=== PATIENT | female | born 1955 | race Caucasian/White ===

== ENCOUNTER → 2016-07-26 | Outpatient (CLI) | payer MEDICARE ==
--- NOTE | 2016-07-26 14:30 | WOMENS IMAGING REPORT ---
EXAM DESCRIPTION: BILAT SCREENING MAMMO W/CAD COMPLETED DATE/TIME: 07/26/2016 1:30 pm REASON FOR STUDY: Z12.31 ROUTINE SCREENING MAMMO Z12.31 ENCNTR SCREEN MAMMOGRAM FOR MALIGNANT NEOPL ASM OF [place] COMPARISON: Multiple since 2009 TECHNIQUE: Standard craniocaudal and mediolateral oblique views of each breast recorded using [employer] l acquisition. LIMITATIONS: None. FINDINGS: Findings present which are benign by mammographic criteria. No suspicious masses, calcifi cations or architectural distortion. Read with the assistance of CAD. .[facility] - R2 Cenova Version 1.3 .[facility] - R2 Cenova Version 1.3 .[facility] - R2 Cenova Version 2.4 .[facility] - R2 Cenova Version 2.4 .[facility] - R2 [employer] Version 9.2 Benign mammographic findings may include one or more of the following: Smooth masses, popcorn/rim/co arse calcifications, asymmetries, post-procedure changes, and lesions with long-standing stability. BREAST DENSITY: b. There are scattered areas of fibroglandular density. BIRAD: 2 BENIGN FINDING(S) RECOMMENDATION: ROUTINE SCREENING COMMENT: PATIENT NOTIFIED BY LETTER. The [employer] recommends an annual screening mammogram for women aged 40 years or over. Each patient will receive a reminder prior to the anniversary date of her mammogram. The [employer] (ACR) has developed recommendations for screening MRI of the breast s in certain patient populations, to be used in conjunction with mammography. Breast MRI surveillanc e may be appropriate for women with more than 20% lifetime risk of developing breast cancer as deter mined by genetic testing, significant family history of the disease, or history of mantle radiation f or Hodgkins Disease. ACR Practice Guidelines 2008. TECHNICAL DOCUMENTATION: FINDING NUMBER: (1) ASSESSMENT: (1) JOB ID: [id number] [employer]- All Rights Reserved
== END ==
LOC: WI 13:02
PROVIDERS: ATTEND Neurological Surgery
DX: Z12.31 Encounter for screening mammogram for malignant neoplasm of breast (principal)
CPT/HCPCS: 77067; G0202

== ENCOUNTER 2017-02-16 07:33 | Day surgery (SDC) | payer MEDICARE ==
[2017-02-11 09:56] LABS: HEMATOCRIT 38.1 % (36.0-47.0); HEMOGLOBIN 12.6 g/dL (12.0-15.5); HGB HCT DIFFERENCE -0.3; MEAN CORPUSCULAR HEMOGLOBIN 27.5 pg (27.0-33.4); MEAN CORPUSCULAR HGB CONC 33.1 g/dL (32.0-36.0); MEAN CORPUSCULAR VOLUME 83 fl (80-97); RED BLOOD COUNT 4.59 10^6/uL (3.72-5.28); RED CELL DISTRIBUTION WIDTH 14.4 % (11.5-14.0); WHITE BLOOD COUNT 6.2 10^3/uL (4.0-10.5)
[~2017-02-16 07:33] MED LIST: ACETAMINOPHEN 325 MG TABLET PO PRN; CEFAZOLIN 1 GM/D5W RTU 1 GM/50 ML RTUPB IV PRN; LACTATED RINGERS 1000 ML IV PRN; LIDOCAINE 0.5% INJ-PF (5 MG/ML) 50 ML SDV SUBCUT PRN
[2017-02-16] MEDS ORDERED: LIDOCAINE 0.5%/EPINEPHRINE INJ 50 ML VIAL ONE (09:28)
[2017-02-16] MEDS ORDERED: MIDAZOLAM 2 MG/2 ML INJ ONE (10:48)
[2017-02-16] MEDS ORDERED: FENTANYL CITRATE INJ/PF 100 MCG/2 ML AMPUL ONE (10:50)
[2017-02-16] MEDS ORDERED: PROPOFOL INJ 200 MG/20 ML VIAL IV ONE (10:50)
[2017-02-16] MEDS ORDERED: MORPHINE SULFATE 10 MG/ML INJ IV PRN (11:12)
[2017-02-16] MEDS ORDERED: DIPHENHYDRAMINE HCL 50 MG/ML VIAL IV PRN (11:12)
[2017-02-16] MEDS ORDERED: MEPERIDINE HCL/PF INJ 25 MG/1 ML DISP.SYRIN IV PRN (11:12)
[2017-02-16] MEDS ORDERED: OXYCODONE-ACETAMINOPHEN 5-325 MG TABLET PO PRN ×2 (11:12)
[2017-02-16] MEDS ORDERED: PROMETHAZINE HCL INJ 25 MG/1 ML VIAL IV PRN ×2 (11:12)
[2017-02-16] MEDS ORDERED: FENTANYL CITRATE INJ/PF 100 MCG/2 ML AMPUL IV PRN ×3 (11:12)
--- NOTE | 2017-02-16 11:51 | Operative Report ---
Operative Report DATE OF SURGERY: 02/16/17 PREOPERATIVE DIAGNOSIS: Lung carcinoma with metastatic disease POSTOPERATIVE DIAGNOSIS: Same OPERATION: 1. Focused ultrasound of the left neck. 2. ultrasound directed insertion of single-lumen port subclavian position. 3. Interpretation of intraoperative fluoroscopy SURGEON: RAMAKRISHNA HERNANDEZ LENS EDGER: ALIDA PARKER ANESTHESIA: LMAC TISSUE REMOVED OR ALTERED: None COMPLICATIONS: None ESTIMATED BLOOD LOSS: Scant INTRAOPERATIVE FINDINGS: See below PROCEDURE: The operating where LMAC anesthesia was induced. Arms were tucked head tilted to the right cervical spine extended. The neck and shaft on the left side were prepped draped sterile fashion. Surgical plan and surgical timeout were conducted Ultrasonography was used to skin the left neck. There was an early bifurcation of the internal jugular vein on the left side. Skin was any stopped 1% lidocaine with epinephrine, orlin made the skin with 11 blade, and the conventional needle and wire was threaded into the left internal jugular vein. A suitable site for placement of the port was chosen in the left subclavian position. Skin was any stopped 1% lidocaine plain. 3 cm incision was made over the sub-clavicular area and pocket developed with electrocautery and blunt dissection. The catheter was then trimmed to appropriate length tunneled between the 2 incisions, attached to the port with the plastic ring. Under fluoroscopic guidance, the. Sheath was threaded over the wire into the left internal jugular vein. The wire and dilator were removed, catheter threaded into the left internal jugular vein, strip away sheath removed leaving the catheter in good position. There is no kinking of the catheter. The tip of the catheter ended at the juncture of the innominate vein and superior vena cava. There was excellent aspiration and flushed through the catheter lumen. Wound closed with 3-0 Vicryl benzoin Steri-Strips. Postop tolerated the procedure well, taken recovery in stable condition. Portable upright chest x-ray pending time dictation. The physician administrative assistant office manager, Ms. Covarrubias, provided assistance during this case by: Assisting with retracting tissue, instillation of local anesthesia and closure of skin incisions.
--- NOTE | 2017-02-16 11:59 | PDOC DISCHARGE SUMMARY ---
Discharge Summary (SDC) - Discharge Final Diagnosis: Metastatic lung carcinoma Date of Surgery: 02/16/17 Discharge Date: 02/16/17 Condition: Good Treatment or Instructions: Patient may shower in 48 hours; follow-up with [facility] in 2 weeks. Allow Steri-Strips to fall off. Port may be used at any time. No Vigorous physical activity for 3 weeks. Prescriptions: Ketorolac Tromethamine [Toradol 10 mg Tablet] 10 mg PO Q6HP PRN #14 tablet PRN Reason: Discharge Diet: As Tolerated Discharge Activity: Activity As Tolerated, No Lifting Over 10 Pounds, No Lifting /Push/Pulling Home Care Assistance: None Needed Report the Following to Your Physician Immediately: Shortness of Breath, Increase in Pain, Fever over 101 Degrees
--- NOTE | 2017-02-16 12:45 | RADIOLOGY REPORT (SQ) ---
EXAM DESCRIPTION: CHEST SINGLE VIEW COMPLETED DATE/TIME: 02/16/2017 12:31 pm REASON FOR STUDY: s/p left IJ COMPARISON: None. EXAM PARAMETERS: NUMBER OF VIEWS: One view. TECHNIQUE: Single frontal radiographic view of the chest acquired. RADIATION DOSE: NA LIMITATIONS: None. FINDINGS: LUNGS AND PLEURA: No opacities, masses or pneumothorax. No pleural effusion. MEDIASTINUM AND HILAR STRUCTURES: No masses. Contour normal. HEART AND VASCULAR STRUCTURES: Heart normal in size. Normal vasculature. BONES: No acute findings. HARDWARE: An injection port is present on the left. The tip of the catheter is in the brachiocephali c vein. OTHER: No other significant finding. IMPRESSION: Catheter placement. TECHNICAL DOCUMENTATION: JOB ID: [id number]
[2017-02-16 13:42] VITALS: BP 106/64
[2017-02-16] MEDS ORDERED: LIDOCAINE 2% INJ-PF (20 MG/ML) 10 ML AMPUL ONE (14:22)
== END 2017-02-16 13:38 | disposition home or self-care (01) ==
LOC: OROUT 07:33
PROVIDERS: ATTEND Surgery
PROC: 05HN33Z Insertion of Infusion Device into Left Internal Jugular Vein, Percutaneous Approach (ICD-10-PCS; principal; 2017-02-16 09:45)
DX: C34.91 Malignant neoplasm of unspecified part of right bronchus or lung (principal); C79.9 Secondary malignant neoplasm of unspecified site; E11.9 Type 2 diabetes mellitus without complications; G25.81 Restless legs syndrome; M54.9 Dorsalgia, unspecified; E03.9 Hypothyroidism, unspecified; E78.00 Pure hypercholesterolemia, unspecified; Z86.39 Personal history of other endocrine, nutritional and metabolic disease; Z87.891 Personal history of nicotine dependence; Z79.899 Other long term (current) drug therapy; Z79.4 Long term (current) use of insulin; Z79.82 Long term (current) use of aspirin; Z88.6 Allergy status to analgesic agent; Z85.118 Personal history of other malignant neoplasm of bronchus and lung
CPT/HCPCS: 36415; 82962; 85027; 71010; 77001; 36561; C1752; C1788; J2250; J0690; J3010; J3490 ×2; J2704; J1642; 532

== ENCOUNTER 2017-06-11 13:41 | Emergency (ER) | payer MEDICARE ==
[2017-06-11] MEDS ORDERED: ONDANSETRON HCL INJ/PF 4 MG/2 ML SDV IV ONE (14:19)
[2017-06-11] MEDS ORDERED: NORMAL SALINE 1000 ML 1,000 ML IV ONE (14:19)
[2017-06-11] MEDS ORDERED: FAMOTIDINE INJ/PF 20 MG/2 ML SDV IV ONE (14:19)
--- NOTE | 2017-06-11 14:21 | ER Document Report ---
ED General - General Chief Complaint: Nausea/Vomiting Stated Complaint: THROAT PAIN,NAUSEA Time Seen by Provider: 06/11/17 14:06 Notes: 62-year-old female patient. History of lung cancer with recent treatment with chemotherapy and radiation. Has been having some burning in her stomach with a lot of reflux. Cannot stop vomiting. Denies any abdominal pain just mostly vomiting and reflux. Has a burning in sensation in her throat. Denies fevers, chills, sweats. Denies back pain. Denies any dysuria. Denies any lower extremity swelling. No shortness of breath. Patient states that she normally has an elevated heart rate. Has not been able to keep anything down all day. Got nervous because of her recent radiation and chemotherapy so decided to come in. Was too weak to come in by car so came in by ambulance. TRAVEL OUTSIDE OF THE [place] IN LAST 30 DAYS: No - HPI Onset: This morning Onset/Duration: Gradual, Worse Quality of pain: Burning Severity: Moderate Pain Level: 3 Associated symptoms: Nausea, Vomiting Exacerbated by: Denies Relieved by: Denies - Related Data Allergies/Adverse Reactions: naproxen [From Naprosyn] Allergy (Severe, Verified 02/16/17 08:11) Rash, Vaginal burning Past Medical History - General Information source: Patient - Social History Smoking Status: Never Smoker Frequency of alcohol use: Occasional Drug Abuse: None Lives with: Alone Family History: CAD, CVA, Hypertension, Malignancy - Past Medical History Cardiac Medical History: Denies: Hx Atrial Fibrillation, Hx Congestive Heart Failure, Hx Coronary Artery Disease, Hx DVT, Hx Heart Attack, Hx Hypercholesterolemia, Hx Hypertension, Hx Peripheral Vascular Disease, Hx Pulmonary Embolism, Hx Heart Murmur Pulmonary Medical History: Denies: Hx Asthma, Hx Bronchitis, Hx COPD, Hx Pneumonia, Hx Tuberculosis Neurological Medical History: Denies: Hx Cerebrovascular Accident, Hx Seizures Endocrine Medical History: Reports: Hx Diabetes Mellitus Type 1, Hx Diabetes Mellitus Type 2, Hx Hypothyroidism Renal/ Medical History: Denies: Hx Ectopic , Hx End Stage Renal Disease, Hx Hemodialysis, Hx Hydrocele, Hx Kidney Stones, Hx Ovarian Cysts, Hx Peritoneal Dialysis, Hx Pelvic Inflammatory Disease, Hx Renal Insufficiency, Hx Varicocele Malignancy Medical History: Reports: Hx Lung Cancer GI Medical History: Reports: Hx Gastroesophageal Reflux Disease, Hx Hiatal Hernia. Denies: Hx Hepatitis, Hx Ulcer Musculoskeltal Medical History: Denies Hx Arthritis Psychiatric Medical History: Reports: Hx Depression Infectious Medical History: Denies: Hx Hepatitis Past Surgical History: Reports: Hx Abdominal Surgery - Milagro fundoplication, Hx Hysterectomy. Denies: Hx Mastectomy, Hx Open Heart Surgery, Hx Pacemaker - Immunizations Immunizations up to date: Yes Hx Diphtheria, Pertussis, Tetanus Vaccination: - UNSURE Hx Pneumococcal Vaccination: 04/17/15 Review of Systems - Review of Systems Constitutional: No symptoms reported EENT: No symptoms reported Cardiovascular: No symptoms reported Respiratory: No symptoms reported Gastrointestinal: Nausea, Vomiting Genitourinary: No symptoms reported Female Genitourinary: No symptoms reported Musculoskeletal: No symptoms reported Skin: No symptoms reported Hematologic/Lymphatic: No symptoms reported Neurological/Psychological: No symptoms reported Physical Exam - Vital signs Interpretation: Normal - General General appearance: Appears well, Alert - HEENT Head: Normocephalic, Atraumatic Eyes: Normal Pupils: PERRL - Respiratory Respiratory status: No respiratory distress Chest status: Nontender Breath sounds: Normal Chest palpation: Normal - Cardiovascular Rhythm: Tachycardia Heart sounds: Normal auscultation Murmur: No - Abdominal Inspection: Normal Distension: No distension Bowel sounds: Normal Tenderness: Nontender Organomegaly: No organomegaly - Back Back: Normal, Nontender - Extremities General upper extremity: Normal inspection, Nontender, Normal color, Normal ROM , Normal temperature General lower extremity: Normal inspection, Nontender, Normal color, Normal ROM , Normal temperature, Normal weight bearing. No: Emmanuel's sign - Neurological Neuro grossly intact: Yes Cognition: Normal Orientation: AAOx4 Cesar Coma Scale Eye Opening: Spontaneous Cesar Coma Scale Verbal: Oriented Erwin Coma Scale Motor: Obeys Commands Cesar Coma Scale Total: 15 Speech: Normal Motor strength normal: LUE, RUE, LLE, RLE Sensory: Normal - Psychological Associated symptoms: Normal affect, Normal mood - Skin Skin Temperature: Warm Skin Moisture: Dry Skin Color: Normal Course - Re-evaluation Re-evalutation: 06/11/17 14:22 Uncertain etiology of patient's nausea and vomiting. Muscles make sure that this is not an anginal equivalent. Explained this to the patient. Will get lipase, CBC, CMP, troponin, EKG, chest x-ray, some Pepcid as well as Zofran and some IV fluids and reassess. 06/11/17 16:37 Laboratory 06/11/17 06/11/17 06/11/17 14:55 14:55 14:55 WBC 10.4 RBC 4.62 Hgb 13.2 Hct 39.6 MCV 86 MCH 28.5 MCHC 33.2 RDW 16.8 H Plt Count 326 Seg Neutrophils % 85.0 H Lymphocytes % 6.5 L Monocytes % 6.6 Eosinophils % 1.5 Basophils % 0.4 Absolute Neutrophils 8.9 H Absolute Lymphocytes 0.7 Absolute Monocytes 0.7 Absolute Eosinophils 0.2 Absolute Basophils 0.0 Sodium 146.5 H Potassium 4.5 Chloride 104 Carbon Dioxide 30 Anion Gap 13 BUN 21 H Creatinine 0.79 Est GFR ( Amer) > 60 Est GFR (Non-Af Amer) > 60 Glucose 146 H Calcium 10.0 Total Bilirubin 0.7 Direct Bilirubin 0.3 Neonat Total Bilirubin Not Reportable Neonat Direct Bilirubin Not Reportable Neonat Indirect Bili Not Reportable AST 19 ALT 32 Alkaline Phosphatase 69 Troponin I < 0.012 Total Protein 6.7 Albumin 4.2 Lipase 46.7 Urine Color Urine Appearance Urine pH Ur Specific [place] Urine Protein Urine Glucose (UA) Urine Ketones Urine Blood Urine Nitrite Urine Bilirubin Urine Urobilinogen Ur Leukocyte Esterase Urine WBC (Auto) Urine RBC (Auto) U Hyaline Cast (Auto) Urine Bacteria (Auto) Squamous Epi Cells Auto Urine Mucus (Auto) Urine Ascorbic Acid 06/11/17 14:55 WBC RBC Hgb Hct MCV MCH MCHC RDW Plt Count Seg Neutrophils % Lymphocytes % Monocytes % Eosinophils % Basophils % Absolute Neutrophils Absolute Lymphocytes Absolute Monocytes Absolute Eosinophils Absolute Basophils Sodium Potassium Chloride Carbon Dioxide Anion Gap BUN Creatinine Est GFR ( Amer) Est GFR (Non-Af Amer) Glucose Calcium Total Bilirubin Direct Bilirubin Neonat Total Bilirubin Neonat Direct Bilirubin Neonat Indirect Bili AST ALT Alkaline Phosphatase Troponin I Total Protein Albumin Lipase Urine Color YELLOW Urine Appearance SLIGHTLY-CLOUDY Urine pH 5.0 Ur Specific [place] 1.022 Urine Protein NEGATIVE Urine Glucose (UA) >=500 H Urine Ketones TRACE H Urine Blood NEGATIVE Urine Nitrite NEGATIVE Urine Bilirubin NEGATIVE Urine Urobilinogen NEGATIVE Ur Leukocyte Esterase NEGATIVE Urine WBC (Auto) 2 Urine RBC (Auto) 1 U Hyaline Cast (Auto) 2 Urine Bacteria (Auto) TRACE Squamous Epi Cells Auto 1 Urine Mucus (Auto) FEW Urine Ascorbic Acid NEGATIVE Chest X-Ray 06/11/17 14:19 IMPRESSION: Interval removal of a left anterior chest wall Port-A-Cath. No evidence of acute cardiopulmonary abnormality. Patient feeling much better at this time. Tolerating p.o. Wants to go home. Still a little tachycardic but states that she has tachycardia and does not know why. DC in stable condition. Patient advised to return immediately for any worsening symptoms or concerns. Patient was advised about her glucose level being slightly elevated but she says that is normal for her as she is a diabetic. - Laboratory Result Diagrams: 06/11/17 14:55 06/11/17 14:55 Laboratory results interpreted by me: 06/11/17 06/11/17 06/11/17 14:55 14:55 14:55 RDW 16.8 H Seg Neutrophils % 85.0 H Lymphocytes % 6.5 L Absolute Neutrophils 8.9 H Sodium 146.5 H BUN 21 H Glucose 146 H Urine Glucose (UA) >=500 H Urine Ketones TRACE H - EKG Interpretation by Me EKG shows normal: [place], Intervals, QRS Complexes, ST-T Waves Rate: Tachycardia Discharge - Discharge Clinical Impression: Gastritis Qualifiers: Gastritis type: unspecified gastritis Chronicity: acute Gastritis bleeding: without bleeding Qualified Code(s): K29.00 - Acute gastritis without bleeding Condition: Good Disposition: HOME, SELF-CARE Instructions: Gastritis ([facility]) Additional Instructions: If symptoms get worse or you are unable to eat or drink, vomiting blood, dark tarry stools or bright red blood in the stool or any other concerns please return immediately within the next 24 hours. Prescriptions: Esomeprazole Magnesium [Nexium 24Hr] 20 mg PO QAM 30 Days #30 capsule. Ondansetron [Zofran Odt 4 mg Tablet] 1 - 2 tab PO Q4H PRN #15 tab.rapdis PRN Reason: For Nausea/Vomiting Referrals: SUMIT CHEUNG III, MD [Primary Care Provider] - Follow up as needed
[2017-06-11 15:19] LABS: ABSOLUTE EOSINOPHILS # (AUTO) 0.2 10^3/uL (0.0-0.6); ABSOLUTE LYMPHOCYTES (AUTO) 0.7 10^3/uL (0.5-4.7); ABSOLUTE MONOCYTES (AUTO) 0.7 10^3/uL (0.1-1.4); ABSOLUTE NEUT (AUTO) 8.9 10^3/uL (1.7-8.2); BASOPHILS % (AUTO) 0.4 % (0-2); EOSINOPHILS % (AUTO) 1.5 % (0-6); HEMATOCRIT 39.6 % (36.0-47.0); HEMOGLOBIN 13.2 g/dL (12.0-15.5); LYMPHOCYTES % (AUTO) 6.5 % (13-45); MEAN CORPUSCULAR HEMOGLOBIN 28.5 pg (27.0-33.4); MEAN CORPUSCULAR HGB CONC 33.2 g/dL (32.0-36.0); MEAN CORPUSCULAR VOLUME 86 fl (80-97); MONOCYTES % (AUTO) 6.6 % (3-13); RED BLOOD COUNT 4.62 10^6/uL (3.72-5.28); RED CELL DISTRIBUTION WIDTH 16.8 % (11.5-14.0); WHITE BLOOD COUNT 10.4 10^3/uL (4.0-10.5)
[2017-06-11 15:35] LABS: APPEARANCE,URINE SLIGHTLY-CLOUDY; BILIRUBIN,URINE NEGATIVE (NEGATIVE); GLUCOSE, URINE >=500 mg/dL (NEGATIVE); KETONES,URINE TRACE mg/dL (NEGATIVE); LEUKOCYTE ESTERASE,URINE NEGATIVE (NEGATIVE); NITRITE,URINE NEGATIVE (NEGATIVE); PROTEIN,URINE NEGATIVE (NEGATIVE); URINE SPECIFIC GRAVITY 1.022; UROBILINOGEN,URINE NEGATIVE mg/dL (<2.0)
[2017-06-11 15:37] LABS: ALANINE AMINOTRANSFERASE 32 U/L (9-52); ALBUMIN 4.2 g/dL (3.5-5.0); ALKALINE PHOSPHATASE 69 U/L (38-126); ANION GAP 13 (5-19); ASPARTATE AMINO TRANSFERASE 19 U/L (14-36); BILIRUBIN,DIRECT 0.3 mg/dL (0.0-0.4); BILIRUBIN,TOTAL 0.7 mg/dL (0.2-1.3); BLOOD UREA NITROGEN 21 mg/dL (7-20); CARBON DIOXIDE 30 mmol/L (22-30); CHLORIDE 104 mmol/L (98-107); CREATININE RESULT 0.79 mg/dL (0.52-1.25); GLUCOSE 146 mg/dL (75-110); LIPASE 46.7 U/L (23-300); POTASSIUM 4.5 mmol/L (3.6-5.0); SODIUM 146.5 mmol/L (137-145); TOTAL PROTEIN 6.7 g/dL (6.3-8.2)
--- NOTE | 2017-06-11 16:11 | RADIOLOGY REPORT (SQ) ---
EXAM DESCRIPTION: CHEST SINGLE VIEW COMPLETED DATE/TIME: 06/11/2017 3:27 pm REASON FOR STUDY: chest pain COMPARISON: 02/16/2017 EXAM PARAMETERS: NUMBER OF VIEWS: One view. TECHNIQUE: Single frontal radiographic view of the chest acquired. RADIATION DOSE: NA LIMITATIONS: None. FINDINGS: LUNGS AND PLEURA: No opacities, masses or pneumothorax. No pleural effusion. MEDIASTINUM AND HILAR STRUCTURES: No masses. Contour normal. HEART AND VASCULAR STRUCTURES: Heart normal in size. Normal vasculature. BONES: No acute findings; re- demonstration of right posterior lateral rib fractures, healed. HARDWARE: A previously visualized left anterior chest wall Port-A-Cath is no longer present. OTHER: No other significant finding. IMPRESSION: Interval removal of a left anterior chest wall Port-A-Cath. No evidence of acute cardio pulmonary abnormality. TECHNICAL DOCUMENTATION: JOB ID: [id number] [employer]- All Rights Reserved
[2017-06-11 18:02] VITALS: BP 139/69
--- NOTE | 2017-06-13 06:00 | EKG REPORT ---
SEVERITY:- OTHERWISE NORMAL ECG - SINUS TACHYCARDIA : Confirmed by: Gail Ornelas MD 13-Jun-2017 06:00:02
== END 2017-06-11 17:35 | disposition home or self-care (01) ==
LOC: ER 13:41
DX: K29.00 Acute gastritis without bleeding (principal); R10.13 Epigastric pain; R53.1 Weakness; E11.9 Type 2 diabetes mellitus without complications; E03.9 Hypothyroidism, unspecified; C34.90 Malignant neoplasm of unspecified part of unspecified bronchus or lung; Z90.710 Acquired absence of both cervix and uterus
CPT/HCPCS: 93005; 99284; 96361; 96374; 96375; 36415; 83690; 85025; 80053; 81001; 84484; 71010; 93010; J2405; J7030; S0028

== ENCOUNTER 2017-07-29 17:02 | Emergency (ER) | payer MEDICARE ==
--- NOTE | 2017-07-29 17:58 | ER Document Report ---
ED General - General Stated Complaint: LOW BLOOD SUGAR Time Seen by Provider: 07/29/17 17:54 Information source: Patient, Relative - daughter TRAVEL OUTSIDE OF THE [place] 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 She was at the shop when her blood pressure dropped. EMS states it went to 24. She was given oral glucose and glucagon and it came up to 60. The patient's daughter states this happens every once in a while and they are more than aware of how to take care of it. They would like the patient discharged immediately. Associated symptoms: Slow to respond Exacerbated by: Denies Relieved by: Rosalind Notes: She states she was running around today to do things for her business as this is the busy season and she did not take care of herself. She states her blood sugar dropped because she did not eat like she normally does. - Related Data Allergies/Adverse Reactions: naproxen [From Naprosyn] Allergy (Severe, Verified 02/16/17 08:11) Rash, Vaginal burning Past Medical History - General Information source: Patient, Relative - Social History Smoking Status: Former Smoker Cigarette use (# per day): No Chew tobacco use (# tins/day): No Smoking Education Provided: No Lives with: Alone, Other - daughter stays with pt. often-has business at patient 's house Family History: CAD, CVA, Hypertension, Malignancy - Past Medical History Cardiac Medical History: Denies: Hx Atrial Fibrillation, Hx Congestive Heart Failure, Hx Coronary Artery Disease, Hx DVT, Hx Heart Attack, Hx Hypercholesterolemia, Hx Hypertension, Hx Peripheral Vascular Disease, Hx Pulmonary Embolism, Hx Heart Murmur Pulmonary Medical History: Denies: Hx Asthma, Hx Bronchitis, Hx COPD, Hx Pneumonia, Hx Tuberculosis Neurological Medical History: Denies: Hx Cerebrovascular Accident, Hx Seizures Endocrine Medical History: Reports: Hx Diabetes Mellitus Type 1, Hx Diabetes Mellitus Type 2, Hx Hypothyroidism Renal/ Medical History: Denies: Hx Ectopic , Hx End Stage Renal Disease, Hx Hemodialysis, Hx Hydrocele, Hx Kidney Stones, Hx Ovarian Cysts, Hx Peritoneal Dialysis, Hx Pelvic Inflammatory Disease, Hx Renal Insufficiency, Hx Varicocele Malignancy Medical History: Reports: Hx Lung Cancer GI Medical History: Reports: Hx Gastroesophageal Reflux Disease, Hx Hiatal Hernia. Denies: Hx Hepatitis, Hx Ulcer Musculoskeltal Medical History: Denies Hx Arthritis Psychiatric Medical History: Reports: Hx Depression Infectious Medical History: Denies: Hx Hepatitis Past Surgical History: Reports: Hx Abdominal Surgery - Milagro fundoplication, Hx Hysterectomy. Denies: Hx Mastectomy, Hx Open Heart Surgery, Hx Pacemaker - Immunizations Immunizations up to date: Yes Hx Diphtheria, Pertussis, Tetanus Vaccination: - UNSURE Hx Pneumococcal Vaccination: 04/17/15 Review of Systems - Review of Systems Constitutional: No symptoms reported EENT: No symptoms reported Cardiovascular: No symptoms reported Respiratory: No symptoms reported Gastrointestinal: No symptoms reported Genitourinary: No symptoms reported Female Genitourinary: No symptoms reported Musculoskeletal: No symptoms reported Skin: No symptoms reported Hematologic/Lymphatic: No symptoms reported Neurological/Psychological: No symptoms reported Physical Exam - Vital signs Vitals: Pulse Resp BP Pulse Ox 96 20 140/67 H 98 07/29/17 17:59 07/29/17 17:59 07/29/17 17:59 07/29/17 17:59 - Notes Notes: PHYSICAL EXAMINATION: GENERAL: Well-appearing, well-nourished and in no acute distress. HEAD: Atraumatic, normocephalic. EYES: Pupils equal round and reactive to light, extraocular movements intact, conjunctiva are normal. ENT: Nares patent. Moist mucous membranes. NECK: Normal range of motion, supple without lymphadenopathy LUNGS: Breath sounds clear to auscultation bilaterally and equal. No wheezes rales or rhonchi. HEART: Regular rate and rhythm without murmurs ABDOMEN: Soft, nontender, nondistended abdomen. No guarding, no rebound. No masses appreciated. Female : deferred Musculoskeletal: Normal range of motion, no pitting or edema. No cyanosis. NEUROLOGICAL: Cranial nerves grossly intact. Normal speech, normal gait. Normal sensory, motor exams PSYCH: Normal mood, normal affect. SKIN: Warm, Dry, normal turgor, no rashes or lesions noted. Course - Re-evaluation Re-evalutation: 07/29/17 19:17 Patient states she felt fine and wanted to be discharged immediately. Daughter states that she will be with the patient throughout the evening and nighttime. Patient denied any oral hypoglycemics. I did state her to eat a large meal containing complex carbohydrates as well as protein. I told her to monitor blood sugar closely this evening. I also told her if her blood sugar was running low to refrain from taking her nighttime insulin dose. - Vital Signs Vital signs: Temp Pulse Resp BP Pulse Ox 90 16 146/59 H 98 07/29/17 18:00 07/29/17 18:00 07/29/17 18:00 07/29/17 18:00 - Laboratory Laboratory results interpreted by me: 07/29/17 07/29/17 17:15 18:07 POC Glucose 114 H 170 H Discharge - Discharge Clinical Impression: Hypoglycemia due to insulin Condition: Stable Disposition: HOME, SELF-CARE Instructions: Hypoglycemia ([facility]) Additional Instructions: Follow up with your primary medical doctor as needed. Return to the emergency department if you have any concerns. Please eat a full meal tonight containing complex carbohydrates as well as protein. Monitor your blood sugar very closely this evening. If your blood sugar continues to run low return to the emergency department. Referrals: SUMIT CHEUNG III, MD [Primary Care Provider] - Follow up as needed
[2017-07-29 18:21] VITALS: BP 146/59
== END 2017-07-29 18:12 | disposition home or self-care (01) ==
LOC: ER 17:02
DX: E11.649 Type 2 diabetes mellitus with hypoglycemia without coma (principal); Z79.4 Long term (current) use of insulin; Z87.891 Personal history of nicotine dependence
CPT/HCPCS: 82962; 99285

== ENCOUNTER → 2017-10-03 | Outpatient (CLI) | payer MEDICARE ==
--- NOTE | 2017-10-04 08:44 | WOMENS IMAGING REPORT ---
EXAM DESCRIPTION: 3D SCREENING MAMMO BILAT COMPLETED DATE/TIME: 10/03/2017 3:07 pm REASON FOR STUDY: ROUTINE SCREENING;Z12.31 COMPARISON: Multiple since 2009 TECHNIQUE: Standard craniocaudal and mediolateral oblique views of each breast recorded using digita l acquisition and breast tomosynthesis. LIMITATIONS: None. FINDINGS: Findings present which are benign by mammographic criteria. No suspicious masses, calcifi cations or architectural distortion. Pertinent benign findings: Benign calcification left upper outer quadrant Read with the assistance of CAD. .[facility] - R2 Cenova Version 1.3 .[facility] - R2 Cenova Version 1.3 .[facility] - R2 Cenova Version 2.4 .[facility] [place] - R2 Cenova Version 2.4 .[facility] - R2 [employer] Version 9.2 Benign mammographic findings may include one or more of the following: Smooth masses, popcorn/rim/co arse calcifications, asymmetries, post-procedure changes, and lesions with long-standing stability. IMPRESSION: BENIGN MAMMOGRAPHIC FINDINGS. BIRADS 2 BREAST DENSITY: b. There are scattered areas of fibroglandular density. BIRAD: 2 BENIGN FINDING(S) RECOMMENDATION: RECOMMENDATION: ROUTINE SCREENING Please continue bilateral screening tomosynthesis in September 2018 COMMENT: The patient has been notified of the results by letter per [place] requirements. Additional no tification policies are in place for contacting patient with suspicious or incomplete findings. Quality ID #[id number]: The [employer] recommends an annual screening mammogram for women aged 40 years or over. This facility utilizes a reminder system to ensure that all patients receive reminder letters, and/or direct phone calls for appointments. This includes reminders for routine scr eening mammograms, diagnostic mammograms, or other Breast Imaging Interventions when appropriate. Th is patient will be placed in the appropriate reminder system. The [employer] (A[employer]) has developed recommendations for screening MRI of the breast s in certain patient populations, to be used in conjunction with mammography. Breast MRI surveillanc e may be appropriate for women with more than 20% lifetime risk of developing breast cancer as deter mined by genetic testing, significant family history of the disease, or history of mantle radiation f or Hodgkins Disease. ACR Practice Guidelines 2008. DBT Technology DBT is a type of tomographic mammography. With conventional mammography, overlapping breast tissue ma y make lesions difficult to detect, even with good compression. DBT uses an x-ray tube that rotates a round the breast, taking images at different angles. These images are then combined to create thin sl ices of the breast that the radiologist can view as a 3D reconstruction. The Hologic unit can perform full-field digital mammograms (2D imaging); or DBT (3D imaging); or both, in a combination mode that quickly performs both the mammogram and the tomosynthesis scan while the breast is still compressed. PQRS 6045F: Fluoroscopic imaging is not utilized for breast tomosynthesis. TECHNICAL DOCUMENTATION: FINDING NUMBER: (1) ASSESSMENT: (1) JOB ID: [id number] [employer]- All Rights Reserved Reading location - IP/workstation name: [email or web address]
== END ==
LOC: WI 14:43
PROVIDERS: ATTEND Internal Medicine
DX: Z12.31 Encounter for screening mammogram for malignant neoplasm of breast (principal)
CPT/HCPCS: 77063; 77067

== ENCOUNTER 2017-11-18 06:21 | Day surgery (SDC) | payer MEDICARE ==
[2017-11-17 10:26] LABS: HEMATOCRIT 38.8 % (36.0-47.0); HEMOGLOBIN 12.8 g/dL (12.0-15.5); MEAN CORPUSCULAR HEMOGLOBIN 26.8 pg (27.0-33.4); MEAN CORPUSCULAR HGB CONC 32.8 g/dL (32.0-36.0); MEAN CORPUSCULAR VOLUME 82 fl (80-97); PLATELET COUNT 300 10^3/uL (150-450); RED BLOOD COUNT 4.75 10^6/uL (3.72-5.28); RED CELL DISTRIBUTION WIDTH 15.5 % (11.5-14.0); WHITE BLOOD COUNT 5.4 10^3/uL (4.0-10.5)
[2017-11-17 10:51] LABS: ANION GAP 12 (5-19); BLOOD UREA NITROGEN 17 mg/dL (7-20); CALCIUM 9.6 mg/dL (8.4-10.2); CARBON DIOXIDE 31 mmol/L (22-30); CHLORIDE 102 mmol/L (98-107); GLUCOSE 148 mg/dL (75-110); POTASSIUM 4.6 mmol/L (3.6-5.0); SODIUM 144.8 mmol/L (137-145)
--- NOTE | 2017-11-17 23:31 | EKG REPORT ---
SEVERITY:- NORMAL ECG - SINUS RHYTHM : Confirmed by: Alla Sifuentes 17-Nov-2017 23:30:27
[~2017-11-18 06:21] MED LIST changes: -ACETAMINOPHEN 325 MG TABLET PO PRN; -CEFAZOLIN 1 GM/D5W RTU 1 GM/50 ML RTUPB IV PRN; -LACTATED RINGERS 1000 ML IV PRN; -LIDOCAINE 0.5% INJ-PF (5 MG/ML) 50 ML SDV SUBCUT PRN; +NORMAL SALINE 1000 ML (RENAL PATIENTS) IV PRN
[2017-11-18] MEDS ORDERED: FAMOTIDINE INJ/PF 20 MG/2 ML SDV IV ONE (07:17)
[2017-11-18] MEDS ORDERED: INSULIN LISPRO 100 UNIT/ML 3 ML VIAL ONE (07:21)
[2017-11-18] MEDS ORDERED: METOCLOPRAMIDE HCL INJ/PF 10 MG/2 ML SDV ONE (07:22)
[2017-11-18] MEDS ORDERED: PROPOFOL INJ 200 MG/20 ML VIAL IV ONE (08:34)
[2017-11-18] MEDS ORDERED: MIDAZOLAM 2 MG/2 ML INJ ONE (08:34)
[2017-11-18] MEDS ORDERED: FENTANYL CITRATE INJ/PF 100 MCG/2 ML AMPUL IV PRN ×3 (09:08)
[2017-11-18] MEDS ORDERED: MEPERIDINE HCL/PF INJ 25 MG/1 ML DISP.SYRIN IV PRN (09:08)
[2017-11-18] MEDS ORDERED: OXYCODONE-ACETAMINOPHEN 5-325 MG TABLET PO PRN ×2 (09:08)
[2017-11-18] MEDS ORDERED: PROMETHAZINE HCL INJ 25 MG/1 ML VIAL IV PRN ×2 (09:08)
[2017-11-18] MEDS ORDERED: DIPHENHYDRAMINE HCL 50 MG/ML VIAL IV PRN (09:08)
[2017-11-18 11:55] VITALS: BP 120/74
--- NOTE | 2017-11-18 12:29 | Operative Report ---
Operative Report DATE OF SURGERY: 11/18/17 Operative Report: The risks, benefits and alternatives of the procedure including risks of bleeding, surgery are the patient is taken back to the operating room and placed in the left,. Timeout was called. Propofol medication is administered. Upon insertion of the scope was discovered that patient had solid stool. While she claims to have prepped following the procedure when asked about a prep she was not able to give me details about her prep at all. There is solid chunks of stool throughout the colon. I was able to maneuver the scope gently until approximately the area of the hepatic flexure. After this point we had to discontinue the procedure at risk of perforation. The rest of the colon that was visible appeared to be normal without any polyps but I did make sure to advise the patient that because of the prep we could not exclude any other lesions that are being hidden by the stool. I offered her to come back for another procedure after another cleanout. I do not believe that she fully understood what I have said. PREOPERATIVE DIAGNOSIS: Colorectal cancer screening POSTOPERATIVE DIAGNOSIS: Inadequate prep. Incomplete colonoscopy to the hepatic flexure. Internal hemorrhoids. Patient offered to be rescheduled with alternative prep however patient does not think that she will be able to prep. OPERATION: Colonoscopy with biopsy SURGEON: SCOTT BUCKLEY ANESTHESIA: LMAC TISSUE REMOVED OR ALTERED: As noted above. COMPLICATIONS: None. ESTIMATED BLOOD LOSS: None. INTRAOPERATIVE FINDINGS: As noted above. PROCEDURE: Patient tolerated procedure well. No immediate postprocedure complications are noted. Patient discharged in good condition. Discharge date 11/18/2017. Discharge diet: Regular. Discharge activity: Regular. 2-3 week follow-up to discuss findings. Patient is instructed call the office or proceed to the emergency room should there be any further problems or questions.
== END 2017-11-18 11:10 | disposition home or self-care (01) ==
LOC: OROUT 06:21
PROVIDERS: ATTEND Internal Medicine Gastroenterology
DX: Z12.11 Encounter for screening for malignant neoplasm of colon (principal); K64.8 Other hemorrhoids; Z79.01 Long term (current) use of anticoagulants
CPT/HCPCS: 45380; 93005; 36415; 82962; 85027; 80048; 93010; 88305 ×2; J2250; A9270; J2765; J2704; S0028; 811; J1815

== ENCOUNTER 2019-07-05 07:20 | Day surgery (SDC) | payer MEDICARE, OTHER ==
[~2019-07-05 07:20] MED LIST changes: +KETOROLAC TROMETHAMINE 0.45% 4 DROP/0.4 ML DROPERETTE OD PRN; -NORMAL SALINE 1000 ML (RENAL PATIENTS) IV PRN
[2019-07-05] MEDS: TETRACAINE HCL 0.5% OPH SOLN 4 ML OD PRN ×5 (08:06→08:41)
[2019-07-05] MEDS: TROPICAMIDE 1% OPH SOLN 15 ML OD PRN ×3 (08:07→08:32)
[2019-07-05] MEDS: CYCLOPENTOLATE 0.2%/PHENYLEPHRINE 1% OPH SOLN 2 ML OD PRN ×3 (08:07→08:32)
[2019-07-05] MEDS: BESIFLOXACIN HCL 0.6% OPH SUSP 5 ML BOTTLE OD PRN ×4 (08:07→09:08)
[2019-07-05] MEDS ORDERED: FENTANYL CITRATE INJ/PF 100 MCG/2 ML AMPUL ONE (08:19)
[2019-07-05] MEDS ORDERED: MIDAZOLAM 2 MG/2 ML INJ ONE (08:19)
[2019-07-05] MEDS: LIDOCAINE 1%/PHENYLEPHRINE 1.5% 1 ML VIAL ONE ×2 (08:51)
[2019-07-05] MEDS: CHONDR SU A NA/HYALUR INTRAOC KIT (SURGICARE) ONE ×2 (08:51)
[2019-07-05] MEDS: EPINEPHRINE INJ/PF 1 MG/1 ML AMPULE ONE ×2 (08:51)
[2019-07-05] MEDS: DORZOLAMIDE HCL 2%/TIMOLOL MALEAT 0.5% OPH SOLN 10 ML OD PRN ×2 (09:08)
--- NOTE | 2019-07-05 13:17 | Operative Report ---
Operative Report-[facility] Operative Report: DATE OF SURGERY: 07 05 2019 PREOPERATIVE DIAGNOSIS: Cataract, right eye POSTOPERATIVE DIAGNOSIS: Cataract, right eye OPERATION: Cataract extraction with insertion of an toric IOL of the right eye. Intraocular Lens Model: [31.5 [id number] rotated to 94 degrees] Reason for surgery was difficulty driving at night secondary to glare from headlights SURGEON: Devin Ramírez MD ANESTHESIA: Topical PROCEDURE: After obtaining appropriate consent, the patient's right eye was prepped and draped in a sterile fashion as well as the surgeon in the sterile manner and cataract surgery was started. First a paracentesis blade was used to make a side-port incision. Viscoelastic was used to inflate the anterior chamb er. Next a 2.4 mm incision was made with a 2.4 mm blade, clear corneal temporarily. A continuous capsulorrhexis was made using a cystotome and Utrata forceps. Following this hydrodissection was carried out to make the kayy fully loose and mobile and it was rotated. Following this, a divide and conquer technique was used to phacoemulsify the kayy. The remaining cortex was removed with an irrigation/aspiration. Provisc was instilled into the capsular bag to inflate the bag. The intraocular lens was placed. The remaining viscoelastic material was removed with irrigation/aspiration. Following this, the incision was found to be watertight. Besivance and Cosopt was instilled into the eye and a protective shield was placed over the eye. The patient was reurned to the postoperative recovery in a stable condition.
== END 2019-07-05 09:46 | disposition home or self-care (01) ==
LOC: SC 07:20
PROVIDERS: ATTEND Internal Medicine
DX: H25.811 Combined forms of age-related cataract, right eye (principal); I10 Essential (primary) hypertension; E11.9 Type 2 diabetes mellitus without complications; Z79.4 Long term (current) use of insulin; E07.9 Disorder of thyroid, unspecified; Z88.6 Allergy status to analgesic agent; Z79.82 Long term (current) use of aspirin
CPT/HCPCS: 66984; 82962; 00142; V2787; J2250; J3490 ×2; A9270; J0171; J3010; J2370; 142